=== PATIENT | male | born 2005 | race Caucasian/White ===

== ENCOUNTER 2025-09-15 17:54 | Emergency (ER) | payer OTHER ==
[~2025-09-15] VITALS: Ht 185.4 cm; Wt 115.7 kg
[2025-09-15] MEDS: KETOROLAC 30 MG/ML 1 ML VIAL IM ONE (19:00)
[2025-09-15] MEDS ORDERED: KETO-204 PO (19:48)
[2025-09-15 19:54] VITALS: BP 132/74; TEMP 98.1; O2SAT 100
== END 2025-09-15 19:55 | disposition home or self-care (01) ==
LOC: M ED 18:18
DX: S42.001A Fracture of unspecified part of right clavicle, initial encounter for closed fracture (principal); V00.311A Fall from snowboard, initial encounter; Y93.23 Activity, snow (alpine) (downhill) skiing, snowboarding, sledding, tobogganing and snow tubing; Y92.89 Other specified places as the place of occurrence of the external cause; Y99.9 Unspecified external cause status
CPT/HCPCS: 73000; 96372; 99284; J1885